=== PATIENT | female | born 1980 | race Caucasian/White ===

== ENCOUNTER 2017-02-02 05:49 | Emergency (ER) | payer OTHER ==
[~2017-02-02] VITALS: Ht 154.9 cm; Wt 103.4 kg
[2017-02-02 05:53] VITALS: BP 148/100
--- NOTE | 2017-02-02 06:25 | NUR ---
Patient ambulated to bed 06.
--- NOTE | 2017-02-02 06:25 | NUR ---
PATIENT PRESENTS TO ED WITH SYMPTOMS OF ANXIETY CLAIMING SHE ALSO HAD ADEATH IN THE FAMILY 2 WEEKS AGO AND CURRENTLY IN BETWEEN MOVING TO A DIFFERNT PLACE. . PT STATES DENIES N/V/D; SKIN IS PINK/WARM/DRY; AAOX4 WITH EVEN AND STEADY GAIT; LUNGS CLEAR BL; HR EVEN AND REGULAR; PT DENIES ANY FEVER, CP, OR COUGH AT THIS TIME; PATIENT STATES PAIN OF 0/10 AT THIS TIME; VSS; PATIENT POSITIONED FOR COMFORT; HOB ELEVATED; BEDRAILS UP X2; BED DOWN. ER MD MADE AWARE OF PT STATUS.
[2017-02-02] MEDS ORDERED: ONDANSETRON 4 MG ODT PO ONE (07:10)
[2017-02-02] MEDS ORDERED: LORazepam 2 MG/ML VIAL IM ONE (07:10)
--- NOTE | 2017-02-02 07:15 | NUR ---
Pt report given to SUNI GALLAGHER. Transfer of care at this time.
--- NOTE | 2017-02-02 07:36 | NUR ---
PATIENT MEDICATED FOR BEING ANXIOUS.CALM AT THIS TIME.DENIES DISCOMFORT. CONTINUE TO MONITOR
--- NOTE | 2017-02-02 08:20 | NUR ---
PT RESTING COMFORTABLY ON BED , VSS, POST MEDICATION "FEEL A LITTLE BETTER" PER PT, WILL CONTINUE TO MONITOR
--- NOTE | 2017-02-02 08:30 | NUR ---
AAO PT BEING UPDATED BY DR NUNEZ, WILL CONTINUE TO MONITOR
[2017-02-02 08:57] VITALS: BP 132/83
--- NOTE | 2017-02-02 08:57 | NUR ---
Patient discharged with v/s stable. Written and verbal after care instructions given and explained. Patient verbalized understanding. Ambulatory with steady gait. All questions addressed prior to discharge. Advised to follow up with PMD.
== END 2017-02-02 08:57 | disposition home or self-care (01) ==
LOC: MED 05:49
DX: F41.9 Anxiety disorder, unspecified (principal); R03.0 Elevated blood-pressure reading, without diagnosis of hypertension
CPT/HCPCS: 96372; 99284; J2060; S0119; 99283

== ENCOUNTER 2017-02-14 09:09 | Emergency (ER) | payer OTHER ==
[~2017-02-14] VITALS: Ht 160 cm; Wt 103.0 kg
[2017-02-14 09:21] VITALS: BP 118/89
--- NOTE | 2017-02-14 10:27 | NUR ---
Patient ambulated to bed 6.
--- NOTE | 2017-02-14 10:40 | NUR ---
PATIENT PRESENTS TO ED WITH C/O OF LEFT FOREARM PAIN . PT STATES SHE WAS COOKING DINNER WHEN SHE SPILLED HOT WATER IN HER ARM. OPEN BLISTER NOTED TO HER LEFT FOREARM WITH MINIMAL SEROUS DRAINAGE. DENIES N/V/D; SKIN IS PINK/WARM/DRY; AAOX4 WITH EVEN AND STEADY GAIT; LUNGS CLEAR BL; HR EVEN AND REGULAR; PT DENIES ANY FEVER, CP, SOB, OR COUGH AT THIS TIME; PATIENT STATES PAIN OF 7/10 AT THIS TIME; VSS; PATIENT POSITIONED FOR COMFORT; HOB ELEVATED; BEDRAILS UP X2; BED DOWN. ER MD MADE AWARE OF PT STATUS.
[2017-02-14] MEDS ORDERED: SILVER SULFADIAZINE 1% 50 GM JAR TP ONE (11:15)
[2017-02-14 11:36] VITALS: BP 118/89
== END 2017-02-14 11:36 | disposition home or self-care (01) ==
LOC: MED 09:09
DX: T22.212A Burn of second degree of left forearm, initial encounter (principal); F17.200 Nicotine dependence, unspecified, uncomplicated; Z98.84 Bariatric surgery status; Z98.890 Other specified postprocedural states; X11.8XXA Contact with other hot tap-water, initial encounter; Y93.89 Activity, other specified; Y92.89 Other specified places as the place of occurrence of the external cause; Y99.8 Other external cause status
CPT/HCPCS: 16020; 99284

== ENCOUNTER 2017-05-01 19:08 | Emergency (ER) | payer OTHER ==
[~2017-05-01] VITALS: Ht 157.5 cm; Wt 94.3 kg
[2017-05-01 19:48] VITALS: BP 102/72
--- NOTE | 2017-05-01 20:13 | NUR ---
TO ER BED 5
--- NOTE | 2017-05-01 20:20 | NUR ---
PT IS 37/F BIB SELF TO ED WITH C/O LEFT FOOT PAIN,AND SWELLING, S/P SLIPPED AND FALL 3 DAYS AGO SKIN IS PINK/WARM/DRY; AAOX4; LUNGS CLEAR BL; HR EVEN AND REGULAR; PT DENIES ANY FEVER, CP, SOB, OR COUGH AT THIS TIME; PATIENT STATES PAIN OF 9/10 AT THIS TIME; VSS; PATIENT POSITIONED FOR COMFORT; HOB ELEVATED; BEDRAILS UP X2; BED DOWN. ER MD MADE AWARE OF PT STATUS.
[2017-05-01] MEDS ORDERED: oxyCODONE/APAP 5/325 MG 1 TAB TAB PO ONE (21:30)
[2017-05-01 21:52] VITALS: BP 114/72
--- NOTE | 2017-05-01 21:53 | NUR ---
Patient discharged with v/s stable. Written and verbal after care instructions given and explained. Patient alert, oriented and verbalized understanding of instructions. Ambulatory with steady gait ON CRUTCHES. All questions addressed prior to discharge. ID band removed. Patient advised to follow up with PMD. Rx of PERCOCET given. Patient educated on indication of medication including possible reaction and side effects. Opportunity to ask questions provided and answered.
== END 2017-05-01 21:52 | disposition home or self-care (01) ==
LOC: MED 19:08
CPT/HCPCS: 29515; 73630; 99284